=== PATIENT | female | born 1985 | race Caucasian/White ===

== ENCOUNTER 2018-05-04 19:43 | Inpatient (IN) | payer MEDICAID ==
[~2018-05-04] VITALS: Ht 157.5 cm; Wt 80.9 kg
[2018-05-04 19:34] VITALS: Ht 157.5 cm; Wt 80.9 kg
[2018-05-04 19:51] VITALS: BP 112/56; PULSE 74; RESP 18
[2018-05-04] MEDS ORDERED: FER325 PO (20:16)
[2018-05-04] MEDS ORDERED: METF500T24 PO (20:16)
[2018-05-04] MEDS ORDERED: INSU100C SQ (20:16)
[2018-05-04] MEDS ORDERED: PNV91TAB6 PO (20:16)
[2018-05-04] MEDS ORDERED: HYDROCODONE/APAP (5/325) TAB PO ONE (20:30)
[2018-05-05] MEDS: LACTATED RINGER'S 1,000 ML IV SCH ×3 (01:10→09:10)
--- NOTE | 2018-05-05 01:16 | HP ---
Date/Time of Note Date/Time of Note DATE: 05/05/18 TIME: 01:13 OB - History Hx of Present Chief Complaint: pelvic pain Estimated Due Date: Jul 29, 2018 : 1 Para: 0 Spontaneous : 0 Therapeutic : 0 Care: Other (records not available) Obstetrical Complications: Gestational Diabetes Medical Complications: None Past Family/Social History * Past Medical, Surgical, Family and Obstetric Histories reviewed from chart. OB Admission Exam Vital Signs Vital Signs Vital Signs Date Temp Pulse Resp B/P (MAP) Pulse Ox O2 O2 Flow FiO2 Time Delivery Rate 05/04/18 98.4 74 18 112/56 Room Air 19:51 (74) Physical Exam HEENT: WNL Heart: Rhythm Normal Lungs: Clear, Equal Abdomen: WNL Extremities: Normal Reflexes: Normal Heart Rate: 130's Accelerations: Accelerations Present Decelerations: No Decelerations Last 72 hourBlood Glucose Bedside Glucose - 72 Hours Test 05/04/18 20:29 Bedside Glucose 95 mg/dL (70-220) OB Assessment/Plan Reason for admission: other Other Assessment: SINCERE 7.7 Cervical length 2.8 Plan: Other Other plan: Admit IV hydration Repeat SINCERE and cervical length NIYAH MAN MD May 05, 2018 01:16
[2018-05-05] MEDS ORDERED: LACTATED RINGER'S 1,000 ML IV ONE (01:30)
[2018-05-05] MEDS ORDERED: ACETAMINOPHEN 325 MG TAB PO PRN (01:30)
[2018-05-05] MEDS ORDERED: AL HYDROX/MG HYDROX/SIMETH 30 ML CUP PO PRN (01:30)
[2018-05-05] MEDS ORDERED: ONDANSETRON 4 MG INJ IV PRN (01:30)
[2018-05-05] MEDS ORDERED: NOVO7030 SC (01:49)
--- NOTE | 2018-05-05 02:45 | TRIAGE ---
OB Triage Datetime Report Generated by CPN: 05/05/2018 02:45 Datetime: 05/05/2018 02:00 Labor Evaluation Frequency: none Monitor Mode: External Heart Rate FHR Baseline Rate: 140 Monitor Mode: External US Variability: Moderate 6-25 bpm Accelerations: 10X10 Comments: Some loss of contact. Datetime: 05/05/2018 01:05 Pain Assessment Comments: Patient is sleeping and appears comfortable. Datetime: 05/05/2018 01:00 Labor Evaluation Frequency: none Monitor Mode: External Heart Rate FHR Baseline Rate: 140 Monitor Mode: External US Variability: Moderate 6-25 bpm Accelerations: 10X10 Decelerations: Variable Comments: Some loss of contact. Appropriate for gestational age Datetime: 05/05/2018 00:00 Labor Evaluation Frequency: none Monitor Mode: External Heart Rate FHR Baseline Rate: 140 Monitor Mode: External US Variability: Moderate 6-25 bpm Accelerations: 10X10 Decelerations: Variable Comments: Appropriate for gestational age Datetime: 05/04/2018 23:06 Stage of : OB Triage Temperature Route: Oral Resting Tone [place]: Relaxed Pain Assessment Pain Scale: 3 Pain Presence: Intermittent Pain Type: Ache Pain Location: Back Pain Relief Measures: Comfort Measures Datetime: 05/04/2018 23:00 Labor Evaluation Frequency: none Monitor Mode: External Heart Rate FHR Baseline Rate: 140 Monitor Mode: External US Variability: Moderate 6-25 bpm Accelerations: 10X10 Comments: Difficulty in assessing due to frequent loss of contact Datetime: 05/04/2018 22:15 Resting Tone [place]: Relaxed Datetime: 05/04/2018 22:00 Labor Evaluation Frequency: none Monitor Mode: External Resting Tone [place]: Relaxed Heart Rate FHR Baseline Rate: 140 Monitor Mode: External US Variability: Moderate 6-25 bpm Comments: Difficulty in assessing heart rate because of frequent loss of contact Pain Assessment Pain Scale: 4 Pain Presence: Intermittent Pain Type: Ache Pain Location: Back Pain Relief Measures: Comfort Measures Datetime: 05/04/2018 21:03 Resting Tone [place]: Relaxed Datetime: 05/04/2018 21:00 Labor Evaluation Frequency: none Monitor Mode: External Heart Rate FHR Baseline Rate: 140 Monitor Mode: External US Variability: Moderate 6-25 bpm Accelerations: 15X15 Decelerations: None Pain Assessment Pain Scale: 6 Pain Presence: Intermittent Pain Type: Ache Pain Location: Back Pain Relief Measures: Comfort Measures Pain Assessment Comments: Patient states, "It's much better." Datetime: 05/04/2018 20:40 Resting Tone [place]: Relaxed Datetime: 05/04/2018 20:26 Pain Assessment Pain Scale: 8 Pain Presence: Intermittent Pain Type: Ache Pain Location: Back Pain Relief Measures: Comfort Measures Datetime: 05/04/2018 20:20 Labor Evaluation Frequency: x1 Monitor Mode: External Duration (sec)2399: 90 Heart Rate FHR Baseline Rate: 145 Monitor Mode: External US Variability: Moderate 6-25 bpm Accelerations: 15X15 Decelerations: None Comments: Appropriate for gestational age Datetime: 05/04/2018 20:09 Resting Tone [place]: Relaxed Datetime: 05/04/2018 19:51 Stage of : OB Triage Assessment Type: Triage Maternal Assessment Level of Consciousness: Fully Conscious DTR's/Clonus: DTRs 2+; No Clonus Headache: Denies Blurred Vision: No Respiratory Effort: Unlabored; Regular Rhythm; Equal Expansion Breath Sounds, Left: Clear and Equal Breath Sounds, Right: Clear and Equal Nausea/Vomiting: Denies RUQ Epigastric Pain: Denies Lower Extremities Edema: None Degree: None Upper Extremities Edema: None Degree: None Facial Edema: None Temperature Route: Oral Fall Risk Assessment History of Falling: (0) No Secondary Diagnosis: (0) No Ambulatory Aid: (0) Bedrest/Nurse Assist IV Therapy: (0) No Gait: (0) Normal/Bedrest/Immobile Mental Status: (0) Oriented to Own Ability Fall Score: 0 Fall Risk Score Definition: No Risk: No action required Comments: Patient states she feels active movement. Pain Assessment Pain Scale: 8 Pain Presence: Intermittent Pain Type: Ache Pain Location: Back Pain Relief Measures: Comfort Measures Datetime: 05/04/2018 19:50 Resting Tone [place]: Relaxed Datetime: 05/04/2018 19:49 Stage of : OB Triage Datetime: 05/04/2018 19:46 Monitor Mode: External (Annotations: applied) Resting Tone [place]: Relaxed Monitor Mode: External US (Annotations: applied) Datetime: 05/04/2018 19:34 Time of Arrival: 05/04/2018 19:34 EGA: 27.5 Arrived By: Wheelchair Arrived From: Home Chief Complaint: Back pain 09/18 Movement: Present Contractions: Denies/Absent Rupture of Membranes: Denies Vaginal Bleeding: None Vaginal Discharge: Denies Recent Sexual Intercouse: Denies Abdominal Trauma: Not Applicable Patient Complaints: Back Pain Time Provider Notified: 05/04/2018 20:20 Provider Notified: Dr. Hansen Initial Plan: EFM x2
[2018-05-05] MEDS ORDERED: PRENATAL VITAMIN PO SCH (09:00)
[2018-05-05] MEDS ORDERED: NPH, HUMAN INSULIN ISOPHANE 3ML VIAL SC SCH (21:00)
[2018-05-05] MEDS ORDERED: metFORMIN 500 MG TAB NGT SCH (21:00)
--- NOTE | 2018-05-05 22:43 | PN ---
Date/Time of Note Date/Time of Note DATE: 05/05/18 TIME: 22:38 OB Subjective Subjective Subjective Patient seen and examined. She states good movement. She denies nausea, vomiting, shortness of breath, chest pain, abdominal pain between contractions, headache, visual changes, vaginal bleeding or LOF. OB Objective Objective Objective General: Patient appears well, alert and oriented, NAD, appropriate mood and affect ABD: gravid, soft, non-tender. Back: No CVA tenderness (B/L) LE: Mild edema. No clubbing, cyanosis, edema, thigh or calf tenderness bilaterally FHT: 135 bpm , moderate variability with acceleration, no deceleration-category I Contractions:None OB Assessment/Plan Other plan: 32-year-old 1 with single intrauterine at 27 weeks and 6 days with a OLEKSANDR of 07/29/2018 and gestational diabetes A2 was admitted due to back pain and borderline amniotic fluid - FHR: Reassuring. No sign of metabolic acidosis- Category I - Contractions: None - SINCERE was 7.7, repeat ultrasound SINCERE is 9.9 - Cervical length is 3.3 - Currently patient has no symptom she discharged home in stable condition with follow-up with her primary OB. Recommend continue metformin and NPH and insulin and checking fasting blood glucose and 2 hours postprandial. Sign and symptom of labor, preeclampsia and kick count discussed in detail with patient. She expressed understanding. All of her questions answered. GAVI BECKER May 05, 2018 22:43
== END 2018-05-05 13:00 | disposition home or self-care (01) | DRG 833 ==
LOC: OBT 19:43 → L-D 19:44 → OBT 05-05 01:05 → L-D 05-05 12:03
PROVIDERS: ADMIT Obstetrics & Gynecology; ATTEND Obstetrics & Gynecology
DX: O47.02 False labor before 37 completed weeks of gestation, second trimester (principal); Z3A.27 27 weeks gestation of pregnancy; O24.419 Gestational diabetes mellitus in pregnancy, unspecified control
CPT/HCPCS: 36415; 76815; 76817; 81001; 81003; 82962; 85025; 85610; 85730; 86592; 86850; 86900; 86901; 87086; 87340; 96360; G0463; J1815; J7120

== ENCOUNTER 2018-07-06 18:33 | Outpatient (CLI) | payer MEDICAID ==
[~2018-07-06] VITALS: Ht 162.6 cm; Wt 86.4 kg
[~2018-07-06 18:33] MED LIST: FER325 PO; METF500T24 PO; NOVO7030 SC; PNV91TAB6 PO
[2018-07-06 18:48] VITALS: Ht 162.6 cm; Wt 86.4 kg
[2018-07-06 18:49] VITALS: BP 129/64
--- NOTE | 2018-07-06 22:10 | PN ---
Triage Information Date/Time Reason for visit: antepartum testing for GDM Weeks of Gestation 36 weeks /Para Diabetes: gestational Diabetes management: insulin controlled, oral agent Hypertention: none Objective Vital Signs Date Temp Pulse Resp B/P (MAP) Pulse Ox O2 O2 Flow FiO2 Time Delivery Rate 07/06/18 98.1 129/64 18:49 (85) Heart Rate: 120's Heart Rate Comments Reactive Results/Medications Result Diagram: 07/06/18210307/06/182103 Results 24 hrs Laboratory Tests Test 07/06/18 20:44 07/06/18 21:04 Urine Color YELLOW Urine Clarity CLEAR Urine pH 6.0 Urine Specific [place] 1.014 Urine Ketones NEGATIVE Urine Nitrite NEGATIVE Urine Bilirubin NEGATIVE Urine Urobilinogen NEGATIVE Urine Leukocyte Esterase NEGATIVE Urine Microscopic RBC 3 Urine Microscopic WBC 2 Urine Squamous Epithelial Cells FEW Urine Mucus FEW A Urine Hemoglobin 1+ H Urine Glucose NEGATIVE Urine Total Protein NEGATIVE White Blood Count 16.9 H Red Blood Count 4.50 Hemoglobin 12.3 Hematocrit 37.2 Mean Corpuscular Volume 82.7 Mean Corpuscular Hemoglobin 27.3 L Mean Corpuscular Hemoglobin Concent 33.1 Red Cell Distribution Width 16.6 H Platelet Count 212 Mean Platelet Volume 11.9 H Immature Granulocytes % 1.200 H Neutrophils % 72.4 Lymphocytes % 18.1 Monocytes % 7.2 Eosinophils % 0.9 Basophils % 0.2 Nucleated Red Blood Cells % 0.0 Immature Granulocytes # 0.200 H Neutrophils # 12.2 H Lymphocytes # 3.1 H Monocytes # 1.2 H Eosinophils # 0.2 Basophils # 0.0 Nucleated Red Blood Cells # 0.0 Sodium Level 136 Potassium Level 4.0 Chloride Level 108 Carbon Dioxide Level 20 L Anion Gap 8 Blood Urea Nitrogen 13 Creatinine 0.45 Est Glomerular Filtrat Rate mL/min > 60 Glucose Level 79 Uric Acid 5.9 Calcium Level 9.4 Total Bilirubin 0.3 Direct Bilirubin 0.00 Indirect Bilirubin 0.3 Aspartate Amino Transf (AST/SGOT) 15 Alanine Aminotransferase (ALT/SGPT) 23 Alkaline Phosphatase 135 H Total Protein 7.0 Albumin 3.6 Globulin 3.40 H Albumin/Globulin Ratio 1.05 Imaging Results BPP 8/8 SINCERE 7.5 Disposition: Discharge Assessment/Plan Follow up antepartum testing on 07/07/2018. NIYAH MAN MD July 06, 2018 22:10
--- NOTE | 2018-07-06 22:50 | TRIAGE ---
OB Triage Datetime Report Generated by CPN: 07/06/2018 22:49 Datetime: 07/06/2018 22:04 Monitor Mode: External (Annotations: removed) Monitor Mode: External US (Annotations: removed) Datetime: 07/06/2018 22:00 Labor Evaluation Frequency: x3 Monitor Mode: External Duration (sec)2399: 60-100 Pattern: Normal: <= 5 Contractions in 10 Minutes Heart Rate FHR Baseline Rate: 130 Monitor Mode: External US Variability: Moderate 6-25 bpm Accelerations: 15X15 Decelerations: None Category: Category I Comments: Some loss of contact Datetime: 07/06/2018 21:59 Resting Tone [place]: Relaxed Datetime: 07/06/2018 21:00 Labor Evaluation Frequency: x2 Monitor Mode: External Duration (sec)2399: 60-80 Heart Rate FHR Baseline Rate: 130 Monitor Mode: External US Variability: Moderate 6-25 bpm Accelerations: 15X15 Decelerations: None Category: Category I Comments: Some loss of contact Datetime: 07/06/2018 20:47 Resting Tone [place]: Relaxed Pain Assessment Pain Scale: 0 Pain Presence: None/Denies Pain Type: N/A Datetime: 07/06/2018 20:00 Labor Evaluation Frequency: x1 Monitor Mode: External Duration (sec)2399: 60 Pattern: Normal: <= 5 Contractions in 10 Minutes Heart Rate FHR Baseline Rate: 125 Monitor Mode: External US Variability: Moderate 6-25 bpm Accelerations: 15X15 Decelerations: None Category: Category I Comments: Frequent loss of contact Datetime: 07/06/2018 19:34 Resting Tone [place]: Relaxed Datetime: 07/06/2018 19:28 Stage of : OB Triage Assessment Type: Triage Maternal Assessment Level of Consciousness: Fully Conscious DTR's/Clonus: DTRs 2+; No Clonus Headache: Denies Blurred Vision: No Respiratory Effort: Unlabored; Regular Rhythm; Equal Expansion Breath Sounds, Left: Clear and Equal Breath Sounds, Right: Clear and Equal Nausea/Vomiting: Denies RUQ Epigastric Pain: Denies Lower Extremities Edema: None Degree: None Upper Extremities Edema: None Degree: None Facial Edema: None Temperature Route: Oral Fall Risk Assessment History of Falling: (0) No Secondary Diagnosis: (0) No Ambulatory Aid: (0) Bedrest/Nurse Assist IV Therapy: (0) No Gait: (0) Normal/Bedrest/Immobile Mental Status: (0) Oriented to Own Ability Fall Score: 0 Fall Risk Score Definition: No Risk: No action required Datetime: 07/06/2018 19:27 Resting Tone [place]: Relaxed Datetime: 07/06/2018 19:20 Resting Tone [place]: Relaxed Comments: Patient states she feels active movement Datetime: 07/06/2018 18:46 Stage of : OB Triage Assessment Type: Triage Maternal Assessment Level of Consciousness: Fully Conscious DTR's/Clonus: DTRs 2+; No Clonus Headache: Denies Blurred Vision: No Respiratory Effort: Unlabored; Regular Rhythm; Equal Expansion Breath Sounds, Left: Clear and Equal Breath Sounds, Right: Clear and Equal Nausea/Vomiting: Denies RUQ Epigastric Pain: Denies Lower Extremities Edema: None Degree: None Upper Extremities Edema: None Degree: None Facial Edema: None Temperature Route: Oral Fall Risk Assessment History of Falling: (0) No Secondary Diagnosis: (0) No Ambulatory Aid: (0) Bedrest/Nurse Assist IV Therapy: (0) No Gait: (0) Normal/Bedrest/Immobile Mental Status: (0) Oriented to Own Ability Fall Score: 0 Fall Risk Score Definition: No Risk: No action required Monitor Mode: External Pain Assessment Pain Scale: 0 Pain Presence: None/Denies Datetime: 07/06/2018 18:23 Time of Arrival: 07/06/2018 18:23 EGA: 36.5 Arrived By: Ambulatory Arrived From: Dr. Moon Chief Complaint: Sent from clinic with orders for NST and BPP Movement: Present Contractions: Denies/Absent Rupture of Membranes: Denies Vaginal Bleeding: None Vaginal Discharge: Denies Recent Sexual Intercouse: Denies Abdominal Trauma: Not Applicable Patient Complaints: None Time Provider Notified: 07/06/2018 20:05 Provider Notified: Dr. Michael Initial Plan: EFM x2, BPP Datetime: 05/05/2018 11:31 Stage of : Antepartum Time of Arrival: 07/06/2018 18:23 EGA: 36.5 Arrived By: Ambulatory Arrived From: Home Chief Complaint: SENT FOR F/UP NST BPP FOR GMD Movement: Present Contractions: Occasional Rupture of Membranes: Denies Vaginal Bleeding: None Vaginal Discharge: Denies Recent Sexual Intercouse: Denies Abdominal Trauma: Not Applicable Patient Complaints: Contractions Time Provider Notified: 07/06/2018 20:05 Initial Plan: NST BPP Datetime: 05/05/2018 11:00 Stage of : Antepartum Labor Evaluation Frequency: 0 Monitor Mode: External Resting Tone [place]: Relaxed Heart Rate FHR Baseline Rate: 135 Monitor Mode: External US Variability: Moderate 6-25 bpm Accelerations: 10X10 Decelerations: None Category: Category I Pain Assessment Pain Scale: 0 Pain Presence: None/Denies Pain Type: N/A Datetime: 05/05/2018 10:40 Stage of : Antepartum Labor Evaluation Frequency: 0 Monitor Mode: External Resting Tone [place]: Relaxed Heart Rate FHR Baseline Rate: 140 Monitor Mode: External US FHR Baseline Changes: No Baseline Change Variability: Moderate 6-25 bpm Accelerations: 10X10 Decelerations: None Category: Category I Pain Assessment Pain Scale: 0 Pain Presence: None/Denies Pain Type: N/A Datetime: 05/05/2018 09:00 Stage of : Antepartum Labor Evaluation Frequency: 0 Monitor Mode: External Resting Tone [place]: Relaxed Heart Rate FHR Baseline Rate: 140 Monitor Mode: External US Variability: Moderate 6-25 bpm Accelerations: 10X10 Decelerations: None Category: Category I Pain Assessment Pain Scale: 0 Pain Presence: None/Denies Pain Type: N/A Datetime: 05/05/2018 07:57 Assessment Type: Ongoing Assessment Maternal Assessment Level of Consciousness: Fully Conscious DTR's/Clonus: DTRs 2+; No Clonus Headache: Denies Blurred Vision: No Respiratory Effort: Unlabored; Regular Rhythm; Equal Expansion Breath Sounds, Left: Clear and Equal Breath Sounds, Right: Clear and Equal Nausea/Vomiting: Denies RUQ Epigastric Pain: Denies Lower Extremities Edema: None Degree: None Upper Extremities Edema: None Degree: None Facial Edema: None Fall Risk Assessment History of Falling: (0) No Secondary Diagnosis: (0) No Ambulatory Aid: (0) Bedrest/Nurse Assist IV Therapy: (20) Yes Gait: (0) Normal/Bedrest/Immobile Mental Status: (0) Oriented to Own Ability Fall Score: 20 Fall Risk Score Definition: No Risk: No action required Datetime: 05/05/2018 07:20 Stage of : Antepartum Datetime: 05/05/2018 07:00 Labor Evaluation Frequency: x1 Monitor Mode: External Duration (sec)2399: 40 Quality: Mild Resting Tone [place]: Relaxed Contraction Comments: pt without complaint of uc pain. Heart Rate FHR Baseline Rate: 140 Monitor Mode: External US FHR Baseline Changes: No Baseline Change Variability: Moderate 6-25 bpm Decelerations: None Datetime: 05/05/2018 06:00 Labor Evaluation Frequency: none Monitor Mode: External Resting Tone [place]: Relaxed Heart Rate FHR Baseline Rate: 140 Monitor Mode: External US FHR Baseline Changes: No Baseline Change Variability: Moderate 6-25 bpm Accelerations: 10X10 Decelerations: None Datetime: 05/05/2018 05:00 Labor Evaluation Frequency: x1 Monitor Mode: External Duration (sec)2399: 40 Quality: Mild Resting Tone [place]: Relaxed Contraction Comments: pt without complaint of uc pain. Heart Rate FHR Baseline Rate: 140 Monitor Mode: External US FHR Baseline Changes: No Baseline Change Variability: Moderate 6-25 bpm Accelerations: 15X15 Decelerations: None Datetime: 05/05/2018 04:00 Labor Evaluation Frequency: none Monitor Mode: External Resting Tone [place]: Relaxed Heart Rate FHR Baseline Rate: 140 Monitor Mode: External US FHR Baseline Changes: No Baseline Change Variability: Moderate 6-25 bpm Accelerations: 15X15 Decelerations: None Pain Assessment Pain Scale: 0 Pain Presence: None/Denies Datetime: 05/05/2018 03:36 Stage of : Antepartum Temperature Route: Oral Pain Assessment Pain Scale: 0 Pain Presence: None/Denies Pain Goal: 0 Datetime: 05/05/2018 03:00 Assessment Type: Admission Assessment Vaginal Bleeding: None Maternal Assessment Level of Consciousness: Fully Conscious DTR's/Clonus: DTRs 2+; No Clonus Headache: Denies Blurred Vision: No Respiratory Effort: Unlabored; Regular Rhythm; Equal Expansion Breath Sounds, Left: Clear and Equal Breath Sounds, Right: Clear and Equal Nausea/Vomiting: Denies RUQ Epigastric Pain: Denies Lower Extremities Edema: None Degree: None Upper Extremities Edema: None Degree: None Facial Edema: None Fall Risk Assessment History of Falling: (0) No Secondary Diagnosis: (0) No Ambulatory Aid: (0) Bedrest/Nurse Assist IV Therapy: (20) Yes Gait: (0) Normal/Bedrest/Immobile Mental Status: (0) Oriented to Own Ability Fall Score: 20 Fall Risk Score Definition: No Risk: No action required Labor Evaluation Frequency: none Monitor Mode: External Resting Tone [place]: Relaxed Heart Rate FHR Baseline Rate: 135 Monitor Mode: External US FHR Baseline Changes: No Baseline Change Variability: Moderate 6-25 bpm Accelerations: 10X10 Decelerations: None Pain Assessment Pain Scale: 0 Pain Presence: None/Denies Vaginal Exam Membrane Status: Intact Datetime: 05/04/2018 19:51 Fall Score: 0 Fall Risk Score Definition: No Risk: No action required Datetime: 05/04/2018 19:34 EGA: 27.5
[2018-07-07] MEDS ORDERED: NPH,100I5 SQ (15:11)
== END 2018-07-06 22:16 | disposition home or self-care (01) ==
LOC: L-D 18:33 → OBT 18:33
PROVIDERS: ATTEND Obstetrics & Gynecology
DX: O24.414 Gestational diabetes mellitus in pregnancy, insulin controlled (principal); Z3A.36 36 weeks gestation of pregnancy
CPT/HCPCS: 76818; 80053; 81001; 84560; 85025; G0463

== ENCOUNTER 2018-07-07 13:12 | Inpatient (IN) | payer MEDICAID ==
[~2018-07-07] VITALS: Ht 157.5 cm; Wt 87.2 kg
--- NOTE | 2018-07-07 15:09 | TRIAGE ---
OB Triage Datetime Report Generated by CPN: 07/07/2018 15:09 Datetime: 07/07/2018 13:24 Assessment Type: Triage Level of Consciousness: Fully Conscious DTR's/Clonus: DTRs 2+; No Clonus Headache: Denies Blurred Vision: No Respiratory Effort: Unlabored; Regular Rhythm; Equal Expansion Breath Sounds, Left: Clear and Equal Breath Sounds, Right: Clear and Equal Nausea/Vomiting: Denies RUQ Epigastric Pain: Denies Lower Extremities Edema: None Degree: None Upper Extremities Edema: None Degree: None Facial Edema: None History of Falling: (0) No Secondary Diagnosis: (0) No Ambulatory Aid: (0) Bedrest/Nurse Assist IV Therapy: (0) No Gait: (0) Normal/Bedrest/Immobile Mental Status: (0) Oriented to Own Ability Fall Score: 0 Fall Risk Score Definition: No Risk: No action required Datetime: 07/07/2018 13:23 Time of Arrival: 07/07/2018 13:05 EGA: 36.6 Arrived By: Ambulatory Arrived From: Home Chief Complaint: pt. here for NST/BPP FOR GDM AND F/U LOW SINCERE Movement: Present Contractions: Denies/Absent Rupture of Membranes: Denies Vaginal Bleeding: None Vaginal Discharge: Denies Recent Sexual Intercouse: Denies Abdominal Trauma: Not Applicable Patient Complaints: None Time Provider Notified: 07/07/2018 13:35 Provider Notified: HADADIAN Initial Plan: NST/SINCERE Datetime: 07/07/2018 13:17 Monitor Mode: External Monitor Mode: External US
[2018-07-07] MEDS ORDERED: NPH,100I5 SQ (15:11)
[2018-07-07] MEDS ORDERED: ACETAMINOPHEN 325 MG TAB PO PRN (15:30)
[2018-07-07] MEDS: LACTATED RINGER'S 1,000 ML IV SCH ×2 (17:31→22:18)
--- NOTE | 2018-07-07 20:38 | HP ---
Date/Time of Note Date/Time of Note DATE: 07/07/18 TIME: 20:31 OB - History Hx of Present Free Text/Dictation 32-year-old G1 with A2 gestational diabetes and single intrauterine at 36 weeks and 6 days with a OLEKSANDR of 07/29/2018 presented to triage for NST and the amniotic fluid index. She was seen in triage yesterday, SINCERE was 7.5, commend come back for repeat the SINCERE. She states good movement. She denies nausea, vomiting, shortness of breath, chest pain, headache, visual changes, vaginal bleeding or LOF. Chief Complaint: Follow-up ultrasound : 1 Care: Good Care Ultrasounds: Normal mid trimester US Obstetrical Complications: Gestational Diabetes Medical Complications: None Past Family/Social History * Past medical history: She was diagnosed with diabetes in current . Past Surgical, Family and Obstetric Histories reviewed which are unremarkable Blood Type: O+ Rubella: immune RPR/VDRL: Negative HBsAG: Negative OB Admission Exam Vital Signs Vital Signs Blood pressure 120/67, pulse rate 70/minutes respiratory rate 16/minutes temperature 98.5 Physical Exam HEENT: WNL Heart: Rhythm Normal Lungs: Clear Abdomen: WNL Extremities: Normal Membranes: Intact Heart Rate: 130's Accelerations: Accelerations Present Decelerations: No Decelerations Varibility: Moderate Contractions on Admission: None OB Assessment/Plan Other plan: 32 years old 1 with A2 GDM and oligohydramnios at 36 weeks and 6 days -FHR: No sign of metabolic acidosis- Category I -Continuous EFM, toco -CBC, blood type and screen -Ultrasound performed, SINCERE of 5.1 -IV hydration and repeat ultrasound tomorrow -Please see the orders -Obtain records -O+/Rubella: Immune 2. A2 GDM: -FBS and 2-hour postprandial -Consistent carbohydrate diet -She is currently on metformin 500 mg and NPH 6 U every night. GAVI BECKER July 07, 2018 20:38
[2018-07-07] MEDS: ACCU-CHEK XX SCH (20:56)
[2018-07-07] MEDS ORDERED: NPH, HUMAN INSULIN ISOPHANE 3ML VIAL SC SCH (21:00)
[2018-07-07] MEDS ORDERED: metFORMIN 500 MG TAB PO SCH (21:00)
[2018-07-08] MEDS: LACTATED RINGER'S 1,000 ML IV SCH (06:00)
[2018-07-08] MEDS: ACCU-CHEK XX SCH ×2 (08:00→10:30)
[2018-07-08 08:29] VITALS: Ht 157.5 cm; Wt 87.2 kg
--- NOTE | 2018-07-08 17:00 | QN ---
Documentation Comment She denies any complaint. Denies any leaking of fluid, vaginal bleeding d ecreased movement or uterine contractions. Denies any headache, blurred vision, epigastric pain or right upper quadrant pa in. Physical examination: General appearance: Alert and oriented x4 does not appear to be in any acute distress Abdomen: Soft, gravid, fundal height consider gestational age NST: Category 1 BPP: 8 Repeat SINCERE: Improved to 8.4 Blood pressure is between 120s to 140s over 80s. Mostly less than 140 0 over 80s. PIH labs are normal. Urine negative for protein Assessment IUP at 37 weeks Mild hypertension, well controlled with rest, asymptomatic Borderline oligohydramnios. Resolved after hydration Patient is currently asymptomatic Patient can be discharged home with a strict labor precautions and kick counts as well as preeclampsia precaution and to return to triage tomorrow again for SINCERE check as well as re-monitoring of her blood pressure Advised the patient to have rest at home Signs and symptoms of preeclampsia as well discussed with the patient If any evidence of oligohydramnios or elevated blood pressure noted plan to deliver the patient Plan of care discussed with the patient in detail. It was discussed in [place] language. All questions were answered to patient with satisfaction and patient agreed to comply with instructions. SAQIB SEAY MD July 08, 2018 17:00
--- NOTE | 2018-07-08 17:02 | DS ---
Date/Time of Note Date/Time of Note DATE: 07/08/18 TIME: 17:01 Discharge Summary Admission/Discharge Info Admit Date/Time July 07, 2018 at 14:52 Discharge Date/Time July 08, 2018 at 14:26 Patient Condition: Good Consults None Procedures Observation and monitoring, hydration and repeat testing and SINCERE Monitoring closely blood pressures Hx of Present Illness 32-year-old G1 with A2 gestational diabetes and single intrauterine at 36 weeks and 6 days with a OLEKSANDR of 07/29/2018 presented to triage for NST and the amniotic fluid index. Patient was noted to have borderline low amniotic fluid index. SINCERE was 5. She had mildly borderline elevated blood pressure that improved significantly with rest. Blood pressures were all below 140s over 80s. A couple of values in 140s over 80s. She was asymptomatic. After hydration next day repeat SINCERE showed SINCERE above 8. Patient was asymptomatic. Patient was discharged home in stable condition with a strict labor precautions kick count and to return to triage tomorrow again for repeat SINCERE. She also will have repeat serial blood pressure monitoring. If any evidence of increasing blood pressure, low amniotic fluid or consider delivery. Otherwise plan to delivery between 37 to 38 weeks considering labs normal and patient asymptomatic with adequate growth and adequate amniotic fluid Plan of care discussed with the patient. Patient verbalized understanding. All questions were answered to patient's satisfaction. Patient was advised to rest at home. Hospital Course None complicated Home Meds Reported Medications NPH, Human Insulin Isophane (Humulin N Kwikpen) 100 Unit/1 Ml Insuln.pen, 6 UNIT SQ QHS, EA 07/07/18 Metformin Hcl* (Metformin Hcl*) 500 Mg Tablet, 500 MG PO QHS, #30 TAB 05/04/18 Ferrous Sulfate* (Ferrous Sulfate*) 325 Mg Tabec, 325 MG PO DAILY, TAB 05/04/18 Pnv95/Ferrous Fumarate/FA ( Vitamin Tablet) 1 Each Tablet, 1 EACH PO, TAB 05/04/18 Discontinued Reported Medications Insulin Isophan/Regular (Humulin 70/30) 100 Units/Ml Susp, 6 UNIT SC HS, EA 05/05/18 Follow-up Plan Tomorrow with triage for repeat SINCERE after adequate hydration tonight with a strict preeclampsia precaution, labor precautions kick count Primary Care Provider Care Physician No Primary Time spent on discharge: > 30 minutes Pending Labs Laboratory Tests Test 5/29/19 20:26 07/08/18 06:51 07/08/18 08:01 07/08/18 10:28 Bedside 112 73 79 Glucose mg/dL (70-220) mg/dL (70-220) mg/dL (70-220) Lab Scanned REFERENCE Report LAB [id number] SAQIB SEAY MD July 08, 2018 17:02
--- NOTE | 2018-07-08 17:06 | PD.PPDC ---
[facility] Discharge Instruction Condition [id number] Patient Condition: [id number] Good Diet [id number] Diet: Cdoje3x Special Diet (low sodium diet) Activity/Restrictions [id number] Restrictions: Sepst6u No Exercising No Lifting No Driving Minimize Walking Minimize Stair-climbing Follow-up Follow-up with Physician: 1, Day/Days Provider Information: Saqib Seay MD Return to clinic for [id number] OB Instructions: [id number] Depression Blurried Vision Headache Comment: Uterine contraction, decreased movement, vaginal bleeding, headache, blurred vision, epigastric pain or right upper quadrant pain or any other concern. SAQIB SEAY MD July 08, 2018 17:06
== END 2018-07-08 14:26 | disposition home or self-care (01) | DRG 832 ==
LOC: OBT 13:12 → L-D 13:14 → OBT 14:50 → L-D 14:52 → PP1 18:45
PROVIDERS: ADMIT Obstetrics & Gynecology; ATTEND Obstetrics & Gynecology
DX: O24.414 Gestational diabetes mellitus in pregnancy, insulin controlled (principal); O41.03X0 Oligohydramnios, third trimester, not applicable or unspecified; O16.3 Unspecified maternal hypertension, third trimester; Z3A.36 36 weeks gestation of pregnancy
CPT/HCPCS: 76816; 76818; 80053; 81001; 82962; 84560; 85025; G0463; J1815; J7120

== ENCOUNTER 2018-07-09 16:48 | Outpatient (CLI) | payer MEDICAID ==
[~2018-07-09] VITALS: Ht 157.5 cm; Wt 87.5 kg
[~2018-07-09 16:48] MED LIST changes: +NPH,100I5 SQ
[2018-07-09 17:47] VITALS: Ht 157.5 cm; Wt 87.5 kg
[2018-07-09 17:48] VITALS: BP 131/68; PULSE 73; RESP 18
--- NOTE | 2018-07-09 21:02 | PN ---
Triage Information Date/Time Reason for visit: Follow-up in oligohydramnios Weeks of Gestation Patient is a 32-year-old 1 para 0 at 37 weeks and 1 day gestation with estimated date of delivery July 29, 2018 She is here for follow-up on oligohydramnios for NST and BPP Patient is gestational diabetic on metformin and insulin She reports positive movement, denies uterine contractions, denies vaginal bleeding or leaking fluid /Para 1 para 0 Diabetes: gestational (GDM A2) Diabetes management: insulin controlled (Metformin and insulin) Hypertention: none Objective Vital Signs Date Temp Pulse Resp B/P (MAP) Pulse Ox O2 O2 Flow FiO2 Time Delivery Rate 07/09/18 98.4 73 18 131/68 17:48 (89) Heart Rate: 140's Heart Rate Comments heart rate tracing category 1 Contractions: None Results/Medications Imaging Results PROCEDURE: US OB. CLINICAL INDICATION: Oligohydramnios TECHNIQUE: Multiple sonographic images of the pelvis were obtained. The images were reviewed on a PACS workstation. COMPARISON: 07/08/2018 FINDINGS: There is a single live intrauterine . cardiac activity is identified at a rate of 133 beats per minute. presentation is cephalic. Placenta is anterior grade II. There is no evidence of placenta previa or abruption. Biophysical profile score is as follows: Breathing 2 Movements 2 Tone 2 Fluid volume 2 Amniotic fluid index = 8.2 cm Total biophysical profile score = 8/8 IMPRESSION: Biophysical profile score = 8/8 RPTAT: HH .Masoud Carrasco MD, MD Date Time Electronically viewed and signed by .Masoud Carrasco MD, on 07/09/2018 18:20 .W/ CC: GAVI BECKER [id number] Disposition: Discharge Assessment/Plan Patient instructed to return in 48 hours for repeat NST and BPP kick count instructions were given Labor precautions were given Patient instructed to follow-up with her own [facility] TENDER in 1 to 2 days VERONICA AMEZQUITA MD July 09, 2018 21:02
== END 2018-07-09 19:53 | disposition home or self-care (01) ==
LOC: L-D 16:48 → OBT 16:48
PROVIDERS: ATTEND Obstetrics & Gynecology
DX: O41.03X0 Oligohydramnios, third trimester, not applicable or unspecified (principal); O24.414 Gestational diabetes mellitus in pregnancy, insulin controlled; Z3A.37 37 weeks gestation of pregnancy
CPT/HCPCS: 76818; Z7500; G0463

== ENCOUNTER 2018-07-12 16:07 | Outpatient (CLI) | payer MEDICAID ==
[~2018-07-12] VITALS: Ht 157.5 cm; Wt 86.8 kg
[~2018-07-12 16:07] MED LIST changes: -NOVO7030 SC
[2018-07-12 16:27] VITALS: Ht 157.5 cm; Wt 86.8 kg
[2018-07-12 16:28] VITALS: BP 134/63; PULSE 60; RESP 19
--- NOTE | 2018-07-12 17:32 | TRIAGE ---
OB Triage Datetime Report Generated by CPN: 07/12/2018 17:31 Datetime: 07/12/2018 16:32 Assessment Type: Triage Maternal Assessment Level of Consciousness: Fully Conscious DTR's/Clonus: DTRs 2+; No Clonus Headache: Denies Blurred Vision: No Respiratory Effort: Unlabored; Regular Rhythm; Equal Expansion Breath Sounds, Left: Clear and Equal Breath Sounds, Right: Clear and Equal Nausea/Vomiting: Denies RUQ Epigastric Pain: Denies Lower Extremities Edema: None Degree: None Upper Extremities Edema: None Degree: None Facial Edema: None Fall Risk Assessment History of Falling: (0) No Secondary Diagnosis: (0) No Ambulatory Aid: (0) Bedrest/Nurse Assist IV Therapy: (0) No Gait: (0) Normal/Bedrest/Immobile Mental Status: (0) Oriented to Own Ability Fall Score: 0 Fall Risk Score Definition: No Risk: No action required Datetime: 07/12/2018 16:31 Time of Arrival: 07/12/2018 16:20 EGA: 37.4 Arrived By: Ambulatory Arrived From: Home Chief Complaint: LOW SINCERE Movement: Present Contractions: Denies/Absent Rupture of Membranes: Denies Vaginal Bleeding: None Vaginal Discharge: Denies Recent Sexual Intercouse: Denies Abdominal Trauma: Not Applicable Patient Complaints: Other Time Provider Notified: 07/12/2018 17:15 Provider Notified: dr self Initial Plan: NST BPP Datetime: 07/12/2018 16:30 Labor Evaluation Frequency: 0 Monitor Mode: External Pattern: Normal: <= 5 Contractions in 10 Minutes [address] Tone [place]: Relaxed Heart Rate FHR Baseline Rate: 135 Monitor Mode: External US Variability: Moderate 6-25 bpm Accelerations: 15X15 Decelerations: None Category: Category I Datetime: 07/09/2018 19:40 Stage of : OB Triage Datetime: 07/09/2018 19:12 Stage of : OB Triage Monitor Mode: External Quality: Mild Pattern: Normal: <= 5 Contractions in 10 Minutes Resting Tone [place]: Relaxed Heart Rate FHR Baseline Rate: 140 Monitor Mode: External US FHR Baseline Changes: No Baseline Change Variability: Moderate 6-25 bpm Accelerations: 15X15 Decelerations: None Category: Category I Datetime: 07/09/2018 18:40 Labor Evaluation Frequency: 0 Monitor Mode: External Pattern: Normal: <= 5 Contractions in 10 Minutes [address]ing Tone [place]: Relaxed Heart Rate FHR Baseline Rate: 135 Monitor Mode: External US Variability: Moderate 6-25 bpm Accelerations: 10X10 Decelerations: None Category: Category I Pain Assessment Pain Scale: 0 Pain Presence: None/Denies Pain Type: N/A Pain Goal: 3 Pain Relief Measures: Comfort Measures Datetime: 07/09/2018 17:29 Stage of : OB Triage Assessment Type: Triage Maternal Assessment Level of Consciousness: Fully Conscious DTR's/Clonus: DTRs 2+; No Clonus Headache: Denies Blurred Vision: No Respiratory Effort: Unlabored; Regular Rhythm; Equal Expansion Breath Sounds, Left: Clear and Equal Breath Sounds, Right: Clear and Equal Nausea/Vomiting: Denies RUQ Epigastric Pain: Denies Facial Edema: None Temperature Route: Axillary Fall Risk Assessment History of Falling: (0) No Secondary Diagnosis: (0) No Ambulatory Aid: (0) Bedrest/Nurse Assist IV Therapy: (0) No Gait: (0) Normal/Bedrest/Immobile Mental Status: (0) Oriented to Own Ability Fall Score: 0 Fall Risk Score Definition: No Risk: No action required Labor Evaluation Frequency: 0 Monitor Mode: External Pattern: Normal: <= 5 Contractions in 10 Minutes [address] Tone [place]: Relaxed Heart Rate FHR Baseline Rate: 135 Monitor Mode: External US Variability: Moderate 6-25 bpm Accelerations: None Decelerations: None Pain Assessment Pain Scale: 0 Pain Presence: None/Denies Pain Type: N/A Pain Goal: 3 Pain Relief Measures: Comfort Measures Datetime: 07/09/2018 17:28 Time of Arrival: 07/02/2018 16:43 EGA: 36.1 Arrived By: Ambulatory Arrived From: Home Chief Complaint: FOLLOW UP LOW SINCERE, DENIES BLEEDING, LEAKING, OR UC'S, DENIES H/A, BLURRY VISION OR EPIGASTRIC PAIN Movement: Present Contractions: Denies/Absent Rupture of Membranes: Denies Vaginal Discharge: Denies Recent Sexual Intercouse: Denies Abdominal Trauma: Not Applicable Initial Plan: MONITOR, BPP Datetime: 07/08/2018 14:33 Time of Arrival: 07/02/2018 16:43 EGA: 36.1 Arrived By: Ambulatory Arrived From: Home Datetime: 07/08/2018 14:17 Monitor Mode: External Resting Tone [place]: Relaxed Contraction Comments: none noted Heart Rate FHR Baseline Rate: 130 Monitor Mode: External US Variability: Moderate 6-25 bpm Accelerations: 15X15 Decelerations: None Category: Category I Comments: Periods of loss of contact Pain Presence: None/Denies Pain Type: N/A Datetime: 07/08/2018 13:34 Monitor Mode: External Datetime: 07/08/2018 13:31 Monitor Mode: External US Datetime: 07/08/2018 13:00 Monitor Mode: External Resting Tone [place]: Relaxed Contraction Comments: none noted Heart Rate FHR Baseline Rate: 130 Monitor Mode: External US Variability: Moderate 6-25 bpm Accelerations: 15X15 Decelerations: None Category: Category I Comments: periods of loss of contact Pain Presence: None/Denies Pain Type: N/A Datetime: 07/08/2018 12:00 Stage of : Antepartum Maternal Assessment Level of Consciousness: Fully Conscious Headache: Denies Breath Sounds, Left: Clear and Equal Breath Sounds, Right: Clear and Equal Nausea/Vomiting: Denies RUQ Epigastric Pain: Denies Monitor Mode: External Resting Tone [place]: Relaxed Contraction Comments: none noted Heart Rate FHR Baseline Rate: 135 Monitor Mode: External US Variability: Moderate 6-25 bpm Accelerations: 15X15 Decelerations: None Category: Category I Comments: periods of loss of contact due to position change Pain Presence: None/Denies Pain Type: N/A Datetime: 07/08/2018 11:00 Stage of : Antepartum Monitor Mode: External Resting Tone [place]: Relaxed Contraction Comments: none noted Heart Rate FHR Baseline Rate: 135 Monitor Mode: External US Variability: Moderate 6-25 bpm Accelerations: 15X15 Decelerations: None Category: Category I Comments: periods of loss of contact Pain Assessment Pain Scale: 0 Pain Presence: None/Denies Pain Type: N/A Datetime: 07/08/2018 10:00 Stage of : Antepartum Monitor Mode: External Resting Tone [place]: Relaxed Contraction Comments: none noted or felt Heart Rate FHR Baseline Rate: 130 Monitor Mode: External US Variability: Moderate 6-25 bpm Accelerations: 15X15 Decelerations: None Category: Category I Pain Presence: None/Denies Pain Type: N/A Datetime: 07/08/2018 09:00 Stage of : Antepartum Labor Evaluation Frequency: none noted Monitor Mode: External Quality: Mild Pattern: Normal: <= 5 Contractions in 10 Minutes [address] [place]: Relaxed Heart Rate FHR Baseline Rate: 140 Monitor Mode: External US Variability: Moderate 6-25 bpm Accelerations: 15X15 Decelerations: None Category: Category I Pain Presence: None/Denies Pain Type: N/A Datetime: 07/08/2018 08:02 Assessment Type: Ongoing Assessment Maternal Assessment Level of Consciousness: Fully Conscious Headache: Denies Blurred Vision: No Respiratory Effort: Unlabored; Regular Rhythm; Equal Expansion Breath Sounds, Left: Clear and Equal Breath Sounds, Right: Clear and Equal Nausea/Vomiting: Denies RUQ Epigastric Pain: Denies Lower Extremities Edema: Bilateral Lower Extremities Degree: 1+ Degree: None Facial Edema: None Fall Risk Assessment History of Falling: (0) No Secondary Diagnosis: (0) No Ambulatory Aid: (0) Bedrest/Nurse Assist IV Therapy: (20) Yes Gait: (0) Normal/Bedrest/Immobile Mental Status: (0) Oriented to Own Ability Fall Score: 20 Fall Risk Score Definition: No Risk: No action required Datetime: 07/08/2018 08:00 Labor Evaluation Frequency: NONE NOTED/FELT Pattern: Normal: <= 5 Contractions in 10 Minutes [address] [place]: Relaxed Heart Rate FHR Baseline Rate: 130 Monitor Mode: External US Variability: Moderate 6-25 bpm Accelerations: 15X15 Decelerations: None Category: Category I Pain Presence: None/Denies Pain Type: N/A Datetime: 07/08/2018 06:00 Labor Evaluation Frequency: 0 Monitor Mode: External Resting Tone [place]: Relaxed Heart Rate FHR Baseline Rate: 130 Monitor Mode: External US Variability: Moderate 6-25 bpm Accelerations: 15X15 Decelerations: None Category: Category I Pain Presence: None/Denies Datetime: 07/08/2018 05:00 Labor Evaluation Frequency: 0 Monitor Mode: External Duration (sec)2399: pt denies Resting Tone [place]: Relaxed Heart Rate FHR Baseline Rate: 130 Monitor Mode: External US Variability: Moderate 6-25 bpm Accelerations: 15X15 Decelerations: None Category: Category I Pain Presence: None/Denies Datetime: 07/08/2018 04:07 Maternal Assessment Level of Consciousness: Fully Conscious Headache: Denies Blurred Vision: No Respiratory Effort: Unlabored; Regular Rhythm; Equal Expansion Temperature Route: Oral Pain Presence: None/Denies Datetime: 07/08/2018 04:00 Labor Evaluation Frequency: 0 Monitor Mode: External Resting Tone [place]: Relaxed Heart Rate FHR Baseline Rate: 130 Pain Presence: None/Denies Datetime: 07/08/2018 03:00 Labor Evaluation Frequency: 0 Monitor Mode: External Duration (sec)2399: denies Resting Tone [place]: Relaxed Heart Rate FHR Baseline Rate: 140 Monitor Mode: External US Variability: Moderate 6-25 bpm Accelerations: 15X15 Decelerations: None Category: Category I Pain Presence: None/Denies Datetime: 07/08/2018 02:00 Labor Evaluation Frequency: 0 Monitor Mode: External Duration (sec)2399: denies Resting Tone [place]: Relaxed Heart Rate FHR Baseline Rate: 135 Monitor Mode: External US Variability: Moderate 6-25 bpm Accelerations: 15X15 Decelerations: None Category: Category I Pain Presence: None/Denies Datetime: 07/08/2018 01:00 Labor Evaluation Frequency: 0 Monitor Mode: External Duration (sec)2399: denies Resting Tone [place]: Relaxed Heart Rate FHR Baseline Rate: 135 Monitor Mode: External US Variability: Moderate 6-25 bpm Accelerations: 15X15 Decelerations: None Category: Category I Comments: loss of contact due to maternal movements. Pain Presence: None/Denies Datetime: 07/08/2018 00:00 Labor Evaluation Frequency: 0 Monitor Mode: External Duration (sec)2399: denies Resting Tone [place]: Relaxed Heart Rate FHR Baseline Rate: 135 Monitor Mode: External US Variability: Moderate 6-25 bpm Accelerations: 15X15 Decelerations: None Category: Category I Pain Presence: None/Denies Datetime: 07/07/2018 23:00 Labor Evaluation Frequency: 0 Monitor Mode: External Duration (sec)2399: pt denies Resting Tone [place]: Relaxed Heart Rate FHR Baseline Rate: 140 Monitor Mode: External US Variability: Moderate 6-25 bpm Accelerations: 15X15 Decelerations: None Category: Category I Comments: loss of contact at times pt was having a snack. Datetime: 07/07/2018 22:00 Labor Evaluation Frequency: 0 Monitor Mode: External Duration (sec)2399: pt denies Resting Tone [place]: Relaxed Heart Rate FHR Baseline Rate: 135 Monitor Mode: External US Variability: Moderate 6-25 bpm Accelerations: 15X15 Decelerations: None Category: Category I Pain Presence: None/Denies Datetime: 07/07/2018 21:00 Labor Evaluation Frequency: 0 Monitor Mode: External Resting Tone [place]: Relaxed Heart Rate FHR Baseline Rate: 145 Monitor Mode: External US Variability: Moderate 6-25 bpm Accelerations: 15X15 Decelerations: None Category: Category I Pain Presence: None/Denies Datetime: 07/07/2018 20:27 Bedside Blood Glucose: 112 Datetime: 07/07/2018 20:00 Labor Evaluation Frequency: 0 Monitor Mode: External Resting Tone [place]: Relaxed Heart Rate FHR Baseline Rate: 135 Monitor Mode: External US Variability: Moderate 6-25 bpm Accelerations: 15X15 Decelerations: None Category: Category I Pain Presence: None/Denies Datetime: 07/07/2018 19:49 Stage of : Antepartum Assessment Type: Ongoing Assessment Maternal Assessment Level of Consciousness: Fully Conscious DTR's/Clonus: DTRs 2+; No Clonus Headache: Denies Blurred Vision: No Respiratory Effort: Unlabored; Regular Rhythm; Equal Expansion Breath Sounds, Left: Clear and Equal Breath Sounds, Right: Clear and Equal Nausea/Vomiting: Denies RUQ Epigastric Pain: Denies Lower Extremities Edema: None Degree: None Upper Extremities Edema: None Degree: None Facial Edema: None Temperature Route: Oral Fall Risk Assessment History of Falling: (0) No Secondary Diagnosis: (0) No Ambulatory Aid: (0) Bedrest/Nurse Assist IV Therapy: (0) No Gait: (0) Normal/Bedrest/Immobile Mental Status: (0) Oriented to Own Ability Fall Score: 0 Fall Risk Score Definition: No Risk: No action required Pain Presence: None/Denies Datetime: 07/07/2018 19:00 Comments: assumed care of pt. Datetime: 07/07/2018 18:56 Maternal Assessment Level of Consciousness: Fully Conscious Headache: Denies Blurred Vision: No Nausea/Vomiting: Denies RUQ Epigastric Pain: Denies Monitor Mode: External Resting Tone [place]: Relaxed Monitor Mode: External US Pain Presence: None/Denies Datetime: 07/07/2018 16:32 Labor Evaluation Frequency: 0 Monitor Mode: External Resting Tone [place]: Relaxed Heart Rate FHR Baseline Rate: 125 Monitor Mode: External US FHR Baseline Changes: No Baseline Change Variability: Moderate 6-25 bpm Accelerations: 15X15 Decelerations: None Category: Category I Datetime: 07/07/2018 15:56 Labor Evaluation Frequency: 0 Monitor Mode: External Resting Tone [place]: Relaxed Heart Rate FHR Baseline Rate: 120 Monitor Mode: External US FHR Baseline Changes: No Baseline Change Variability: Moderate 6-25 bpm Accelerations: 15X15 Decelerations: None Category: Category I Datetime: 07/07/2018 13:55 Stage of : OB Triage Maternal Assessment Level of Consciousness: Fully Conscious Labor Evaluation Frequency: 1uc Monitor Mode: External Duration (sec)2399: 140 Quality: Mild Resting Tone [place]: Relaxed Heart Rate FHR Baseline Rate: 135 Monitor Mode: External US Variability: Moderate 6-25 bpm Accelerations: 15X15 Decelerations: None Category: Category I Pain Assessment Pain Scale: 0 Pain Goal: 3 Vaginal Exam Membrane Status: Intact Vaginal Bleeding: None Datetime: 07/07/2018 13:24 Fall Score: 0 Fall Risk Score Definition: No Risk: No action required Datetime: 07/07/2018 13:23 EGA: 36.6 Datetime: 07/06/2018 19:28 Fall Score: 0 Fall Risk Score Definition: No Risk: No action required Datetime: 07/06/2018 18:46 Fall Score: 0 Fall Risk Score Definition: No Risk: No action required Datetime: 07/06/2018 18:23 EGA: 36.5 Datetime: 05/05/2018 11:31 EGA: 36.5 Datetime: 05/05/2018 07:57 Fall Score: 20 Fall Risk Score Definition: No Risk: No action required Datetime: 05/05/2018 03:00 Fall Score: 20 Fall Risk Score Definition: No Risk: No action required Datetime: 05/04/2018 19:51 Fall Score: 0 Fall Risk Score Definition: No Risk: No action required Datetime: 05/04/2018 19:34 EGA: 27.5
--- NOTE | 2018-07-12 17:38 | PN ---
Triage Information Date/Time Reason for visit: Patient is here for NST and BPP Weeks of Gestation Patient is a 32-year-old 1 para 0 at 37 weeks and 4 day gestation with estimated date of delivery July 29, 2018 She is here for follow-up on oligohydramnios for NST and BPP Patient is gestational diabetic on metformin and insulin She reports positive movement, denies uterine contractions, denies vaginal bleeding or leaking fluid /Para 1 para 0 Diabetes: gestational Diabetes management: insulin controlled, oral agent Hypertention: none Objective Vital Signs Date Temp Pulse Resp B/P (MAP) Pulse Ox O2 O2 Flow FiO2 Time Delivery Rate 07/12/18 98.4 60 19 134/63 Room Air 16:28 (86) Heart Rate: 140's Heart Rate Comments heart rate tracing category 1 Contractions: None Results/Medications Imaging Results PROCEDURE: US OB biophysical profile CLINICAL INDICATION: Reduced movement TECHNIQUE: Multiple sonographic images of the pelvis were obtained. The images were reviewed on a PACS workstation. COMPARISON: 07/09/2018 FINDINGS: There is a single viable intrauterine gestation. The placenta is anterior. There is no evidence for an abruption or placenta previa. There is a vertex presentation. Biophysical profile: Body movement: 2/2 tone: 2/2 Breathin/2 SINCERE: 2/2 Total: 8/8 There is a normal amount of amniotic fluid with an SINCERE = 7.9 cm. heart activity with 152 bpm There are no adnexal masses. IMPRESSION: Normal biophysical profile. RPTAT: [facility] Physician Yvonne Date Time Electronically viewed and signed by Gloria Yost Physician on 07/12/2018 13:54 ME/ CC: GAVI BECKER [phone] Disposition: Discharge Assessment/Plan kick count instructions were given Labor precautions were given Patient instructed to return in 48 hours for repeat NST and BPP Patient instructed to follow-up with [facility] clinic in 1 to 2 days VERONICA AMEZQUITA MD Jul 12, 2018 17:38
== END 2018-07-12 17:40 | disposition home or self-care (01) ==
LOC: OBT 16:07 → L-D 16:07 → OBT 17:40
PROVIDERS: ATTEND Obstetrics & Gynecology
DX: O41.03X0 Oligohydramnios, third trimester, not applicable or unspecified (principal); O36.8330 Maternal care for abnormalities of the fetal heart rate or rhythm, third trimester, not applicable or unspecified; O24.414 Gestational diabetes mellitus in pregnancy, insulin controlled; Z3A.37 37 weeks gestation of pregnancy
CPT/HCPCS: 76818; Z7500; G0463

== ENCOUNTER 2018-07-15 17:57 | Outpatient (CLI) | payer MEDICAID ==
[~2018-07-15] VITALS: Ht 157.5 cm; Wt 87.2 kg
[2018-07-15 18:59] VITALS: BP 124/74; PULSE 70; RESP 19; Ht 157.5 cm; Wt 87.2 kg
--- NOTE | 2018-07-16 00:35 | TRIAGE ---
OB Triage Datetime Report Generated by CPN: 07/16/2018 00:35 Datetime: 07/15/2018 21:35 Labor Evaluation Frequency: occas Monitor Mode: External Duration (sec)2399: 60-80 Quality: Mild Pattern: Normal: <= 5 Contractions in 10 Minutes Resting Tone [place]: Relaxed Heart Rate FHR Baseline Rate: 130 Monitor Mode: External US FHR Baseline Changes: No Baseline Change Variability: Moderate 6-25 bpm Accelerations: 15X15 Decelerations: None Category: Category I Datetime: 07/15/2018 19:43 Labor Evaluation Frequency: occas Monitor Mode: External Duration (sec)2399: 50-80 Quality: Mild Pattern: Normal: <= 5 Contractions in 10 Minutes Resting Tone [place]: Relaxed Heart Rate FHR Baseline Rate: 140 Monitor Mode: External US FHR Baseline Changes: No Baseline Change Variability: Moderate 6-25 bpm Accelerations: 15X15 Decelerations: None Category: Category I Datetime: 07/15/2018 19:04 Assessment Type: Triage Maternal Assessment Level of Consciousness: Fully Conscious DTR's/Clonus: DTRs 2+; No Clonus Headache: Denies Blurred Vision: No Respiratory Effort: Unlabored; Regular Rhythm; Equal Expansion Breath Sounds, Left: Clear and Equal Breath Sounds, Right: Clear and Equal Nausea/Vomiting: Denies RUQ Epigastric Pain: Denies Lower Extremities Edema: None Degree: None Upper Extremities Edema: None Degree: None Facial Edema: None Fall Risk Assessment History of Falling: (0) No Secondary Diagnosis: (0) No Ambulatory Aid: (0) Bedrest/Nurse Assist IV Therapy: (0) No Gait: (0) Normal/Bedrest/Immobile Mental Status: (0) Oriented to Own Ability Fall Score: 0 Fall Risk Score Definition: No Risk: No action required Datetime: 07/15/2018 19:03 Time of Arrival: 07/15/2018 17:48 EGA: 38.0 Arrived By: Ambulatory Arrived From: Dr. Moon Chief Complaint: PIH Movement: Present Contractions: Denies/Absent Rupture of Membranes: Denies Vaginal Bleeding: None Vaginal Discharge: Denies Recent Sexual Intercouse: Denies Abdominal Trauma: Not Applicable Patient Complaints: Other Time Provider Notified: 07/15/2018 22:00 Provider Notified: Dr. Gandhi Initial Plan: NST BPP PIH LABS AND EFW Datetime: 07/12/2018 16:32 Fall Score: 0 Fall Risk Score Definition: No Risk: No action required Datetime: 07/12/2018 16:31 EGA: 37.4 Datetime: 07/09/2018 17:29 Fall Score: 0 Fall Risk Score Definition: No Risk: No action required Datetime: 07/09/2018 17:28 EGA: 36.1 Datetime: 07/08/2018 14:33 EGA: 36.1 Datetime: 07/08/2018 08:02 Fall Score: 20 Fall Risk Score Definition: No Risk: No action required Datetime: 07/07/2018 19:49 Fall Score: 0 Fall Risk Score Definition: No Risk: No action required Datetime: 07/07/2018 13:24 Fall Score: 0 Fall Risk Score Definition: No Risk: No action required Datetime: 07/07/2018 13:23 EGA: 36.6 Datetime: 07/06/2018 19:28 Fall Score: 0 Fall Risk Score Definition: No Risk: No action required Datetime: 07/06/2018 18:46 Fall Score: 0 Fall Risk Score Definition: No Risk: No action required Datetime: 07/06/2018 18:23 EGA: 36.5 Datetime: 05/05/2018 11:31 EGA: 36.5 Datetime: 05/05/2018 07:57 Fall Score: 20 Fall Risk Score Definition: No Risk: No action required Datetime: 05/05/2018 03:00 Fall Score: 20 Fall Risk Score Definition: No Risk: No action required Datetime: 05/04/2018 19:51 Fall Score: 0 Fall Risk Score Definition: No Risk: No action required Datetime: 05/04/2018 19:34 EGA: 27.5
--- NOTE | 2018-07-16 00:48 | PN ---
Triage Information Date/Time 07/16/1808/27/42 Reason for visit: R/O PIH Weeks of Gestation 38w /Para Diabetes: gestational Diabetes management: insulin controlled, oral agent Hypertention: induced Objective Vital Signs Date Temp Pulse Resp B/P (MAP) Pulse Ox O2 O2 Flow FiO2 Time Delivery Rate 07/15/18 98.4 70 19 124/74 Room Air 18:59 (91) Heart Rate: 140's Heart Rate Comments CAT I tracing Contractions: None Results/Medications Result Diagram: 07/15/18192807/15/181928 Results 24 hrs Laboratory Tests Test 07/15/18 19:00 07/15/18 19:29 Urine Color YELLOW Urine Clarity CLEAR Urine pH 6.0 Urine Specific [place] 1.009 Urine Ketones NEGATIVE Urine Nitrite NEGATIVE Urine Bilirubin NEGATIVE Urine Urobilinogen NEGATIVE Urine Leukocyte Esterase TRACE A Urine Microscopic RBC 1 Urine Microscopic WBC 1 Urine Squamous Epithelial Cells FEW Urine Bacteria FEW A Urine Hemoglobin NEGATIVE Urine Glucose NEGATIVE Urine Total Protein NEGATIVE White Blood Count 16.1 H Red Blood Count 4.53 Hemoglobin 12.6 Hematocrit 37.4 Mean Corpuscular Volume 82.6 Mean Corpuscular Hemoglobin 27.8 L Mean Corpuscular Hemoglobin Concent 33.7 Red Cell Distribution Width 17.2 H Platelet Count 184 Mean Platelet Volume 11.7 H Immature Granulocytes % 1.600 H Neutrophils % 73.7 Lymphocytes % 16.5 Monocytes % 7.2 Eosinophils % 0.8 Basophils % 0.2 Nucleated Red Blood Cells % 0.0 Immature Granulocytes # 0.250 H Neutrophils # 11.9 H Lymphocytes # 2.7 Monocytes # 1.2 H Eosinophils # 0.1 Basophils # 0.0 Nucleated Red Blood Cells # 0.0 Prothrombin Time 12.9 Prothrombin Time Ratio 1.0 INR International Normalized Ratio 0.96 Activated Partial Thromboplast Time 29.0 Fibrinogen 569.0 H Sodium Level 136 Potassium Level 3.8 Chloride Level 108 Carbon Dioxide Level 19 L Anion Gap 9 Blood Urea Nitrogen 13 Creatinine 0.52 Est Glomerular Filtrat Rate mL/min > 60 Glucose Level 113 Uric Acid 6.4 Calcium Level 9.1 Total Bilirubin 0.3 Direct Bilirubin 0.00 Indirect Bilirubin 0.3 Aspartate Amino Transf (AST/SGOT) 15 Alanine Aminotransferase (ALT/SGPT) 18 Alkaline Phosphatase 126 H Total Protein 7.1 Albumin 3.6 Globulin 3.50 H Albumin/Globulin Ratio 1.02 Imaging Results BPP 8/8 EFW 3041gm SINCERE 12.4 Disposition: Discharge Assessment/Plan A IUP 38w A2DM R/O PIH P discharge home RTH in 3days (thursday) for biwkly antepartum test REJI ASHER MD Jul 16, 2018 00:48
== END 2018-07-15 22:30 | disposition home or self-care (01) ==
LOC: OBT 17:57 → L-D 17:58 → OBT 22:30
PROVIDERS: ATTEND Obstetrics & Gynecology
DX: O24.414 Gestational diabetes mellitus in pregnancy, insulin controlled (principal); O13.3 Gestational [pregnancy-induced] hypertension without significant proteinuria, third trimester; Z3A.38 38 weeks gestation of pregnancy
CPT/HCPCS: 76815; 76818; 80053; 81001; 84560; 85025; 85384; 85610; 85730; Z7500; G0463

== ENCOUNTER 2018-07-18 15:39 | Inpatient (IN) | payer MEDICAID ==
[~2018-07-18] VITALS: Ht 157.5 cm; Wt 87.2 kg
[2018-07-18 15:44] VITALS: Ht 157.5 cm; Wt 87.2 kg
[2018-07-18] MEDS ORDERED: LACTATED RINGER'S 1,000 ML IV SCH (18:19)
--- NOTE | 2018-07-18 18:29 | HP ---
Date/Time of Note Date/Time of Note DATE: 07/18/18 TIME: 18:28 OB - History Hx of Present Free Text/Dictation @38+wks Gestation HTN and Low SINCERE : 1 Para: 0 Care: Good Care Ultrasounds: Normal mid trimester US Obstetrical Complications: None, Gestational Hypertension Medical Complications: None Past Family/Social History * Past Medical, Surgical, Family and Obstetric Histories reviewed from chart. OB Admission Exam Physical Exam Abdomen: WNL Extremities: Normal Membranes: Intact Heart Rate: 140's Accelerations: Accelerations Present Decelerations: No Decelerations Varibility: Moderate Contractions on Admission: None Last 72 hours Lab Results CBC & BMP 07/18/18 16:11 OB Assessment/Plan Reason for admission: observation Other Assessment: PMH Denies PSH Denies Allergy NKDA Plan: Expectant Management Other plan: 24 hr urine for pr PIH panel observation NILAM LONDONO M.D. Jul 18, 2018 18:29
[2018-07-18] MEDS ORDERED: OXYTOCIN 30 UNITS/LR 500 ML IV PRN (18:30)
[2018-07-18] MEDS ORDERED: CARBOPROST 250 MCG INJ IM PRN (18:30)
[2018-07-18] MEDS ORDERED: LIDOCAINE 1% (MPF) 30 ML INJ INJ PRN (18:30)
[2018-07-18] MEDS ORDERED: MISOPROSTOL 50 MCG CAPSULE VAG ONE (18:30)
[2018-07-18] MEDS ORDERED: AMPICILLIN 2 GM/NS (PMX) 100 ML IV ONE (18:30)
[2018-07-18] MEDS ORDERED: METHYLERGONOVINE 0.2 MG INJ IM PRN (18:30)
[2018-07-18] MEDS ORDERED: MISOPROSTOL 200 MCG TAB PR PRN (18:30)
[2018-07-18] MEDS ORDERED: OXYTOCIN 30 UNITS/LR 500 ML IV SCH ×3 (18:30)
[2018-07-18] MEDS ORDERED: BUTORPHANOL 2 MG INJ IV PRN (18:30)
[2018-07-18] MEDS ORDERED: MISOPROSTOL 200 MCG TAB PO SCH (21:00)
[2018-07-18] MEDS ORDERED: GLUCOSE GEL 15 GRAM TUBE BUCCAL PRN (21:30)
[2018-07-18] MEDS ORDERED: DEXTROSE 50% 50 ML SYRINGE IV PRN ×2 (21:30)
[2018-07-18] MEDS ORDERED: GLUCOSE GEL 15 GRAM TUBE PO PRN ×2 (21:30)
[2018-07-18] MEDS ORDERED: GLUCAGON 1 MG INJ IM PRN (21:30)
[2018-07-18] MEDS: DEXTROSE 5%-LR 1,000 ML IV SCH (21:39)
[2018-07-18] MEDS: AMPICILLIN 1 GM/NS (PMX) 50 ML IV SCH (22:48)
[2018-07-18] MEDS: INSULIN ASPART [NOVOLOG] 3 ML PEN SC SCH (23:29)
[2018-07-18] MEDS: LACTATED RINGER'S 1,000 ML IV SCH (23:52)
[2018-07-19] MEDS ORDERED: MISOPROSTOL 200 MCG TAB PR PRN
[2018-07-19] MEDS: MISOPROSTOL 50 MCG CAPSULE PO PRN ×5 (00:05→16:11)
[2018-07-19] MEDS: INSULIN ASPART [NOVOLOG] 3 ML PEN SC SCH ×5 (01:00→21:00)
[2018-07-19] MEDS: AMPICILLIN 1 GM/NS (PMX) 50 ML IV SCH ×3 (02:51→10:30)
[2018-07-19] MEDS: LACTATED RINGER'S 1,000 ML IV SCH ×3 (04:53→20:06)
[2018-07-19] MEDS: DEXTROSE 5%-LR 1,000 ML IV SCH ×2 (05:55→23:04)
[2018-07-19] MEDS ORDERED: FENTAnyl 2MCG/ML-ROPIV 0.2% 100 ML ONE (14:29)
--- NOTE | 2018-07-19 15:54 | PREAC ---
Date/Time of Note Date/Time of Note DATE: 07/19/18 TIME: 15:52 Anesthesia Eval and Record Evaluation Time Pre-Procedure Interview DATE: 07/19/18 TIME: 15:52 Age 32 Sex female NPO: 8 hrs Preoperative diagnosis IUP Planned procedure L&D Epidural Past Medical History Past Medical History: Includes Endo: Diabetes Surgery & Anesthesia Issues No known issue Meds Anticoagulation: No Beta Ramez within 24 hr: No Reason Beta Ramez not given: Pt. not on B-Ramez Reported Medications NPH, Human Insulin Isophane (Humulin N Kwikpen) 100 Unit/1 Ml Insuln.pen, 6 UNIT SQ QHS, EA 07/07/18 Metformin Hcl* (Metformin Hcl*) 500 Mg Tablet, 500 MG PO QHS, #30 TAB 05/04/18 Ferrous Sulfate* (Ferrous Sulfate*) 325 Mg Tabec, 325 MG PO DAILY, TAB 05/04/18 Pnv95/Ferrous Fumarate/FA ( Vitamin Tablet) 1 Each Tablet, 1 EACH PO, TAB 05/04/18 Current Medications Ampicillin 50 ml @ 100 mls/hr Q4H IV Last administered on 07/19/18at 10:30; Admin Dose 100 MLS/HR; Start 07/18/18 at 22:30 Butorphanol Tartrate (Stadol) 2 mg Q2H PRN IV .PAIN SCALE 6-10; Start 07/18/18 at 18:30 Lidocaine (Xylocaine 1% (Mpf)) 30 ml ONCE PRN INJ .EPISIOTOMY; Start 07/18/18 at 18:30 Oxytocin/Lactated Ringer's 500 ml @ 500 mls/hr ONCE POST IV ; Start 07/18/18 at 18:30 Oxytocin/Lactated Ringer's 500 ml @ 125 mls/hr POST IV ; Start 07/18/18 at 18:30 Oxytocin/Lactated Ringer's 500 ml @ 0 mls/hr ONCE PRN IV .VAGINAL BLEEDING; Start 07/18/18 at 18:30 Methylergonovine Maleate (Methergine) 0.2 mg ONCE PRN IM .VAGINAL BLEEDING; Start 07/18/18 at 18:30 Carboprost Tromethamine (Hemabate) 250 mcg ONCE PRN IM .VAGINAL BLEEDING; Start 07/18/18 at 18:30 Oxytocin/Lactated Ringer's 500 ml @ 0 mls/hr FOR INDUCTION IV ; Start 07/18/18 at 18:30 Insulin Aspart (Novolog Insulin Pen) NOVOLOG *MODERATE* ALGORI... Q4 SC ; Start 07/18/18 at 22:00 Lactated Ringer's 1,000 ml @ 125 mls/hr Q8H IV Last administered on 07/19/18at 14:32; Admin Dose 125 MLS/HR; Start 07/18/18 at 20:53 Dextrose/Lactated Ringer's 1,000 ml @ 125 mls/hr Q8H IV Last administered on 07/19/18at 05:55; Admin Dose 125 MLS/HR; Start 07/18/18 at 20:53 Miscellaneous Information 1 ea NOTE XX ; Start 07/18/18 at 21:30 Glucose (Glutose) 15 gm Q15M PRN PO DECREASED GLUCOSE; Start 07/18/18 at 21:30 Glucose (Glutose) 22.5 gm Q15M PRN PO DECREASED GLUCOSE; Start 07/18/18 at 21:30 Dextrose (D50w Syringe) 25 ml Q15M PRN IV DECREASED GLUCOSE; Start 07/18/18 at 21:30 Dextrose (D50w Syringe) 50 ml Q15M PRN IV DECREASED GLUCOSE; Start 07/18/18 at 21:30 Glucagon (Glucagen) 1 mg Q15M PRN IM DECREASED GLUCOSE; Start 07/18/18 at 21:30 Glucose (Glutose) 15 gm Q15M PRN BUCCAL DECREASED GLUCOSE; Start 07/18/18 at 21:30 Misoprostol (Cytotec 50 Mcg Capsule) 50 mcg Q4 PRN PO induction Last administered on 07/19/18at 12:07; Admin Dose 50 MCG; Start 07/19/18 at 00:00 Misoprostol (Cytotec) 1,000 mcg ONCE PRN AL .VAGINAL BLEEDING; Start 07/19/18 at 00:00 Meds reviewed: Yes Allergies Coded Allergies: No Known Allergy (Unverified , 07/18/18) Allergies Reviewed: Yes Labs/Studies Labs Reviewed: Reviewed by anesthesiologist Result Diagram: 07/18/18 1830 07/18/18 1830 Laboratory Tests 07/18/18 18:30 Blood Bank Test 07/18/18 18:30 Antibody Screen NEGATIVE Blood Type O POSITIVE Rh Immune Globulin Candidate NO test: Positive Studies: ECG Pre-procedure Exam Last vitals BP:124/67, P:78, Spo2:100%, T:98,8 Airway: Adequate mouth opening, Adequate thyromental dist Mallampati: Mallampati II Teeth: Normal Lung: Normal Heart: Normal ASA Physical Status ASA physical status: 2 Emergency: None Planned Anesthetic Neuraxial: Epidural Planned Pain Management Epidural Pre-operative Attestations Prior to commencing anesthesia and surgery, the patient was re-evaluated, there was verification of: *The patient's identity *The results of appropriate recent lab work and preoperative vital signs *The above evaluation not changing prior to induction *Anesthetic plan, risk benefits, alternative and complications discussed with patient/family; questions answered; patient/family understands, accepts and wishes to proceed. MARY CARMEN WOODRUFF MD Jul 19, 2018 15:54
[2018-07-19] MEDS ORDERED: OXYTOCIN 30 UNITS/LR 500 ML IV SCH (20:00)
[2018-07-19] MEDS ORDERED: ONDANSETRON 4 MG INJ IV PRN (20:30)
[2018-07-19] MEDS ORDERED: NALOXONE (0.4 MG/ML) INJ IV PRN (20:30)
[2018-07-19] MEDS ORDERED: DIPHENHYDRAMINE 50 MG INJ IV PRN (20:30)
[2018-07-19] MEDS: FENTAnyl 2MCG/ML-ROPIV 0.2% 100 ML BAG EPI SCH (20:34)
[2018-07-20] MEDS: FENTAnyl 2MCG/ML-ROPIV 0.2% 100 ML BAG EPI SCH ×2 (01:38→07:07)
[2018-07-20] MEDS: LACTATED RINGER'S 1,000 ML IV SCH (05:52)
--- NOTE | 2018-07-20 10:08 | LDN ---
Date/Time of Note Date/Time of Note DATE: 07/20/18 TIME: 10:07 Delivery Summary Weeks of Gestation 38+ Placenta Delivered: Spontaneously Meconium: none Episiotomy: No Laceration repair: Yes Anesthesia type: Epidural Estimated blood loss: 200 Sponge & Needle done & correct: Yes All needle counts correct: Yes Any foreign bodies felt in the: No Delivery Information Apgars 1 Minute: 9 5 Minute: 9 Suctioning Nose & mouth suctioned at shazia: Yes Delee suction performed: Yes Umbilical Cord Umbilical cord with: 3 Vessels Cord presentations: no nuchal cord Cord Blood was obtained: No Mother & Baby Disposition Disposition Mom & Baby to Maternity; Good: Yes Baby to NICU: No NILAM LONDONO M.D. Jul 20, 2018 10:08
[2018-07-20 11:45] VITALS: BP 129/70; PULSE 66; RESP 18
[2018-07-20] MEDS ORDERED: OXYTOCIN 30 UNITS/LR 500 ML IV SCH (11:53)
[2018-07-20] MEDS ORDERED: CARBOPROST 250 MCG INJ IM PRN (12:00)
[2018-07-20] MEDS ORDERED: ZOLPIDEM 5 MG TAB PO PRN (12:00)
[2018-07-20] MEDS ORDERED: SENNA/DOCUSATE NA (8.6MG/50MG) TAB PO PRN (12:00)
[2018-07-20] MEDS ORDERED: OXYTOCIN 30 UNITS/LR 500 ML IV PRN (12:00)
[2018-07-20] MEDS ORDERED: NACL 0.9% 3 ML SYG IV SCH (12:00)
[2018-07-20] MEDS ORDERED: METHYLERGONOVINE 0.2 MG INJ IM PRN (12:00)
[2018-07-20] MEDS ORDERED: LANOLIN HPA 1 PKT TOP PRN (12:00)
[2018-07-20] MEDS ORDERED: MISOPROSTOL 200 MCG TAB PR PRN (12:00)
[2018-07-20] MEDS ORDERED: OXYCODONE/ASPIRIN (4.88/325) TAB PO PRN (12:00)
[2018-07-20] MEDS: IBUPROFEN 600 MG TAB PO SCH ×3 (12:28→23:32)
[2018-07-20] MEDS ORDERED: ACCU-CHEK XX SCH (13:30)
[2018-07-20 16:00] VITALS: BP 121/59; PULSE 68; RESP 16
[2018-07-20 20:20] VITALS: BP 116/1; PULSE 57; RESP 17
[2018-07-20] MEDS: SENNA/DOCUSATE NA (8.6MG/50MG) TAB PO SCH (21:43)
[2018-07-21 00:20] VITALS: BP 112/56; PULSE 60; RESP 17
[2018-07-21 03:48] VITALS: BP 108/74; PULSE 64; RESP 17
[2018-07-21] MEDS: IBUPROFEN 600 MG TAB PO SCH ×3 (05:37→18:00)
[2018-07-21 08:00] VITALS: BP_SYST 115; BP_SYST 116; BP_DIAS 56; PULSE 61; RESP 18
[2018-07-21] MEDS: SENNA/DOCUSATE NA (8.6MG/50MG) TAB PO SCH ×2 (09:00→21:10)
--- NOTE | 2018-07-21 09:58 | PAC ---
Date/Time of Note Date/Time of Note DATE: 07/21/18 TIME: 09:57 Post-Anesthesia Notes Post-Anesthesia Note Last documented vital signs Vital Signs Date Temp Pulse Resp B/P (MAP) Pulse Ox O2 O2 Flow FiO2 Time Delivery Rate 07/21/18 98.6 61 18 115/56 08:00 (75) 07/21/18 Room Air 03:48 Activity: WNL Respiratory function: WNL Cardiovascular function: WNL Mental status: Baseline Pain reasonably controlled: Yes Hydration appropriate: Yes Nausea/Vomiting absent: Yes Comments BP:112/56, P:78, Spo2:100%, T:98,8 MARY CARMEN WOODRUFF MD Jul 21, 2018 09:58
--- NOTE | 2018-07-21 13:16 | PN ---
Date/Time of Note Date/Time of Note DATE: 07/21/18 TIME: 13:12 OB Subjective Subjective Subjective PPD# 1 Patient is doing well. She denies nausea, vomiting, shortness of breath, chest pain, headache. She has been ambulating without difficulty, tolerating regular diet. Pain is well controlled on current medications OB Objective Objective Objective VS - Last 72 Hours, by Label Date Temp Pulse Resp B/P (MAP) Pulse Ox O2 O2 Flow FiO2 Time Delivery Rate 07/21/18 98.6 61 18 116/56 Room Air 08:00 (76) 07/21/18 98.6 61 18 115/56 08:00 (75) 07/21/18 98.0 64 17 108/74 Room Air 03:48 (85) 07/21/18 97.8 60 17 112/56 Room Air 00:20 (74) 07/20/18 98.3 57 17 116/1 (39) Room Air 20:20 07/20/18 98.2 68 16 121/59 Room Air 16:00 (79) 07/20/18 98.0 66 18 129/70 Room Air 11:45 (89) General: AAO X 3, comfortable, NAD, appropriate mood and affect. ABD: +BS. Soft, non-tender. Uterus 2 cm below umbilicus Flank: No CVA tenderness (B/L) LE: Mild edema. No clubbing, cyanosis, thigh or calf tenderness (B/L). Homans 'sign is negative OB Assessment/Plan Other plan: 32-year-old 1 para 1-0-0-1 with gestational hypertension s/p normal vaginal delivery. PPD#1 - AF, VSS - Baby is doing well, at bed side. She is bonding well - Contraception methods with R/B/A/FR discussed - Continue care - Discharge home tomorrow - Rx and instruction given - Follow up in 2 and 6 weeks at clinic 2. Gestational hypertension: She is currently doing well, no sign or symptom of preeclampsia with severe features. On her blood pressure the last 2 days are within normal limits. GAVI BECKER Jul 21, 2018 13:16
--- NOTE | 2018-07-21 13:20 | DS ---
Date/Time of Note Date/Time of Note DATE: 07/21/18 TIME: 13:17 Obstetrical Discharge Record Final Diagnosis Final Diagnosis: Term delivered Other Final Diagnosis 32-year-old 1 para 1-0-0-1 with gestational hypertension s/p normal vaginal delivery. PPD#1. course was unremarkable. She is ambulating and tolerating regular diet. She is voiding without difficulty. Pain is controlled on current medication. - AF, VSS - Baby is doing well, at bed side. She is bonding well - Contraception methods with R/B/A/FR discussed - Continue care - Discharge home tomorrow - Rx and instruction given - Follow up in 2 and 6 weeks at clinic 2. Gestational hypertension: She is currently doing well, no sign or symptom of preeclampsia with severe features. All blood pressures in last 2 days are within normal limits. Vaginal Delivery Obstetrical Delivery: Spontaneous Condition on Discharge Physical Assessment Last Vitals: Vital Signs Date Temp Pulse Resp B/P (MAP) Pulse Ox O2 O2 Flow FiO2 Time Delivery Rate 07/21/18 98.6 61 18 116/56 Room Air 08:00 (76) Voiding: Yes Bowel Movement: Yes Breast: Soft, non-tender Fundus: Firm Calf Tenderness: No Patient Condition: Stable GAVI BECKER Jul 21, 2018 13:20
[2018-07-21 15:36] VITALS: BP 120/58; PULSE 65; RESP 18
[2018-07-21 20:00] VITALS: BP 130/58; PULSE 60; RESP 18
[2018-07-22] MEDS: IBUPROFEN 600 MG TAB PO SCH ×3 (00:19→12:00)
[2018-07-22 04:35] VITALS: BP 135/65; PULSE 60
[2018-07-22 08:00] VITALS: BP_SYST 122; BP_DIAS 62; BP_DIAS 78; PULSE 59; RESP 18
[2018-07-22] MEDS: SENNA/DOCUSATE NA (8.6MG/50MG) TAB PO SCH (09:00)
[2018-07-22] MEDS ORDERED: DIPHTH/TET/ACEL PERTUSS (ADULT) 0.5 ML VIAL IM* ONE (09:00)
--- NOTE | 2018-07-23 13:43 | DELSUM ---
Delivery Summary A-C Datetime Report Generated by CPN: 07/23/2018 13:43 DELIVERY PERSONNEL Member Service Specialist: Stanislaw, Yasmeen MATERNAL INFORMATION Delivery Anesthesia: Epidural Medications in Delivery: LR 500ML PITOCIN 30 UNITS Delivery QBL (ml): 200 Placenta Cultured: No Maternal Complications: Other Other Maternal Complications: GMD-METFORMIN, SLIDING SCALE INSULIN LABOR SUMMARY EDC: 07/29/2018 00:00 No. Babies in Womb: 1 Attempted: No Labor Anesthesia: Epidural LABOR INFORMATION Reason for Induction: Maternal Diabetes Onset of Labor: 07/19/2018 00:05 Complete Dilatation: 07/20/2018 10:37 Cervical Ripening Agents: Cytotec @ Oxytocin: Induction Group B Beta Strep: Negative Antibiotics # of Doses: 5 Antibiotics Time of Last Dose: 07/19/2018 10:30 Steroids Given: None Reason Steroids Not Administered: Not Applicable MEMBRANES Membranes Rupture Method: Spontaneous Rupture of Membranes: 07/20/2018 05:52 Length of Rupture (hr): 3.92 Amniotic Fluid Color: Clear Amniotic Fluid Amount: Small Amniotic Fluid Odor: None STAGES OF LABOR Stage 1 hr: 34 Stage 1 min: 32 Stage 2 hr: 0 Stage 2 min: -50 Stage 3 hr: 0 Stage 3 min: 1 Total Time in Labor hr: 33 Total Time in Labor min: 43 VAGINAL DELIVERY Episiotomy: None Laceration Extension: Second Degree Laceration Type: Perineal Laceration Repair: Yes Initial Vag Sponge Count: 10 Final Vag Sponge Count: 10 Initial Vag Sharps Count: 1+2 Final Vag Sharps Count: 3 Sponge Count Correct: Yes; Vaginal Sweep Performed Sharps Count Correct: Yes BABY A INFORMATION Infant Delivery Date/Time: 07/20/2018 09:47 Method of Delivery: Vaginal Born in Route : No : N/A Forceps: N/A Vacuum Extraction: N/A Shoulder Dystocia : N/A SHOULDER DYSTOCIA BABY A Delivery Date/Time: 07/20/2018 09:47 PRESENTATION/POSITION BABY A Presentation: Cephalic Cephalic Presentation: Vertex Breech Presentation: N/A PLACENTA INFORMATION BABY A Placenta Delivery Time : 07/20/2018 09:48 Placenta Method of Delivery: Spontaneous Placenta Status: Delivered SCORES BABY A Heart Rate 1 min: >100 bpm Resp Effort 1 min: Good Cry Reflex Irritability 1 min: Cough/Sneeze/Pulls Away Muscle Tone 1 min: Active Motion Color 1 min: Body [place], Extremit Blue Resuscitation Effort 1 min: Tactile Stimulation SCORE 1 MIN: 9 Heart Rate 5 min: >100 bpm Resp Effort 5 min: Good Cry Reflex Irritability 5 min: Cough/Sneeze/Pulls Away Muscle Tone 5 min: Active Motion Color 5 min: Body [place], Extremit Blue Resuscitation Effort 5 min: Tactile Stimulation SCORE 5 MIN: 9 INFORMATION BABY A Gestational Age at Delivery: 38.4 Gestational Status: Early Term- 37- 38.6 Weeks Outcome : Liveborn Infant Condition : Stable Sex: Female IDENTIFICATION/MEDS BABY A ID Band Number: [id number] ID Band Location: Right Leg; Left Arm Sensor Applied: Yes Sensor Number: [id number] Sensor Location : Cord Clamp Vitamin K Given : Not Given Erythromycin Given: Not Given WEIGHT/LENGTH BABY A Infant Birthweight (gm): 2995 Weight (lb): 6 Infant Weight (oz): 10 Infant Length (in): 20.00 Length (cm): 50.80 CORD INFORMATION BABY A No. Cord Vessels: 3 Nuchal Cord : N/A Cord Blood Taken: Yes Infant Suction: Mouth; Nose ASSESSMENT BABY A Complications: None Physical Findings at Delivery: Within Normal Limits Infant Respirations: Appears Normal Medical Case Manager/ALS Called : Yes Infant Care By: RT/RN Transferred To: Remains with Mother
== END 2018-07-22 12:30 | disposition home or self-care (01) | DRG 807 ==
LOC: OBT 15:39 → L-D 15:40 → OBT 17:56 → PP1 07-20 11:33
PROVIDERS: ADMIT Obstetrics & Gynecology; ATTEND Obstetrics & Gynecology
PROC: 10E0XZZ Delivery of Products of Conception, External Approach (ICD-10-PCS; principal; 2018-07-20)
DX: O13.4 Gestational [pregnancy-induced] hypertension without significant proteinuria, complicating childbirth (principal); Z37.0 Single live birth; Z3A.38 38 weeks gestation of pregnancy
CPT/HCPCS: 62322; 76815; 76818; 80053; 81001; 82962; 84112; 84560; 85025; 85610; 85730; 86592; 86850; 86900; 86901; 99464; G0463; J0290; J1815; J2405; J2590; J3010; J7120; J7121

== ENCOUNTER 2018-08-02 00:20 | Emergency (ER) | payer MEDICAID ==
[~2018-08-02] VITALS: Ht 160 cm; Wt 76.2 kg
[2018-08-02 00:25] VITALS: Ht 160 cm; Wt 76.2 kg
[2018-08-02] MEDS ORDERED: KETOROLAC 15 MG INJ IV STA (02:05)
[2018-08-02] MEDS ORDERED: ONDANSETRON 4 MG INJ IV STA (02:05)
[2018-08-02] MEDS ORDERED: METOCLOPRAMIDE 10 MG INJ IV STA (02:05)
[2018-08-02] MEDS ORDERED: SOD CHLORIDE 0.9% 1,000 ML IV STA (02:05)
--- NOTE | 2018-08-02 02:13 | ERD ---
ER Documentation Chief Complaint Chief Complaint Epigastric pain 11/18, SOB, weakness X 12 hrs, had vaginal 2 wks ago HPI Patient is a 32 years old female with PMHx of gestational Diabetes presenting to the clinic for sever (11/18) epigastric pain x 12 hours with 2 episode of NBNB emesis (12PM and 11:30PM respectively). Pyrosis, dizziness, and loss of appetite x 2 days. Patient admits to constipation x 2 days and recent vaginal deliver 2 weeks ago. Patient denies fever, chills, nights sweats, bloating, hematochezia, melena, chest pain. Patient reports of SOB during severe epigastric pain. Patient denies pain with eating. ROS All systems reviewed and are negative except as per history of present illness. Medications Home Meds Active Scripts Meloxicam* (Meloxicam*) 7.5 Mg Tablet, 7.5 MG PO DAILY, #30 TAB Prov:CAT BAILEY PA-C 08/02/18 Ciprofloxacin Hcl* (Ciprofloxacin Hcl*) 500 Mg Tablet, 500 MG PO BID for 10 Days, TAB Prov:CAT BAILEY PA-C 08/02/18 Allergies Allergies: Coded Allergies: No Known Allergy (Unverified , 07/18/18) PMhx/Soc Medical and Surgical Hx: pt denies Surgical Hx History of Surgery: No Anesthesia Reaction: No Hx Neurological Disorder: No Hx Respiratory Disorders: No Hx Cardiac Disorders: No Hx Psychiatric Problems: No Hx Miscellaneous Medical Probl: Yes (GESTATIONAL DM) Hx Alcohol Use: No Hx Substance Use: No Hx Tobacco Use: No Smoking Status: Never smoker Physical Exam Vitals Vital Signs Date Temp Pulse Resp B/P (MAP) Pulse Ox O2 O2 Flow FiO2 Time Delivery Rate 08/02/18 98.9 64 18 149/70 96 00:25 (96) Physical Exam Const: No acute distress. Head: Atraumatic Eyes: Normal Conjunctiva Resp: Clear to auscultation bilaterally Cardio: Regular rate and rhythm, no murmurs Abd: Soft, non distended. Normal bowel sounds. RUQ tenderness with positive French sign and mild guarding. Negative Rovsing sign, McBurney's point ten derness, Burak sign, [place] sign. No rebound tenderness. Back: No midline or flank tenderness. Negative CVAT. Ext: No cyanosis, or edema Neur: Awake and alert Psych: Normal Mood and Affect Result Diagram: 08/02/18 0218 08/02/18 0218 Results 24 hrs Laboratory Tests Test 08/02/18 02:04 08/02/18 02:18 08/02/18 02:23 Urine Color YELLOW Urine Clarity SLIGHTLY CLOUDY Urine pH 5.0 Urine Specific [place] 1.024 Urine Ketones NEGATIVE mg/dL Urine Nitrite NEGATIVE mg/dL Urine Bilirubin NEGATIVE mg/dL Urine Urobilinogen NEGATIVE mg/dL Urine Leukocyte Esterase 3+ Giselle/ul Urine Microscopic RBC 6 /HPF Urine Microscopic WBC 120 /HPF Urine Hemoglobin 2+ mg/dL Urine Glucose NEGATIVE mg/dL Urine Total Protein NEGATIVE mg/dl White Blood Count 16.9 10^3/ul Red Blood Count 5.24 10^6/ul Hemoglobin 14.6 g/dl Hematocrit 43.6 % Mean Corpuscular Volume 83.2 fl Mean Corpuscular Hemoglobin 27.9 pg Mean Corpuscular 33.5 g/dl Hemoglobin Concent Red Cell Distribution Width 15.2 % Platelet Count 331 10^3/UL Mean Platelet Volume 10.3 fl Immature Granulocytes % 0.500 % Neutrophils % 75.6 % Lymphocytes % 16.1 % Monocytes % 6.3 % Eosinophils % 1.2 % Basophils % 0.3 % Nucleated Red Blood Cells % 0.0 /100WBC Immature Granulocytes # 0.080 10^3/ul Neutrophils # 12.8 10^3/ul Lymphocytes # 2.7 10^3/ul Monocytes # 1.1 10^3/ul Eosinophils # 0.2 10^3/ul Basophils # 0.1 10^3/ul Nucleated Red Blood Cells # 0.0 10^3/ul Sodium Level 143 mmol/L Potassium Level 4.1 mmol/L Chloride Level 104 mmol/L Carbon Dioxide Level 26 mmol/L Anion Gap 13 Blood Urea Nitrogen 25 mg/dl Creatinine 0.63 mg/dl Est Glomerular Filtrat > 60 mL/min Rate mL/min Glucose Level 122 mg/dl Calcium Level 9.4 mg/dl Total Bilirubin 0.3 mg/dl Direct Bilirubin 0.00 mg/dl Indirect Bilirubin 0.3 mg/dl Aspartate Amino 102 IU/L Transf (AST/SGOT) Alanine 68 IU/L Aminotransferase (ALT/SGPT) Alkaline Phosphatase 122 IU/L Total Protein 8.3 g/dl Albumin 4.4 g/dl Globulin 3.90 g/dl Albumin/Globulin Ratio 1.12 Lipase 74 U/L POC Beta HCG, Qualitative NEGATIVE Current Medications Medications Dose Sig/Britt Start Time Status Last (Trade) Ordered Route PRN Stop Time Admin Dose Reason Admin Sodium 1,000 ml @ Q1H STAT 08/02/18 DC 08/02/18 Chloride 1,000 mls/hr IV 02:05 02:25 08/02/18 03:04 Ondansetron 4 mg ONCE STAT 08/02/18 DC 08/02/18 HCl (Zofran IV 02:05 02:24 Inj) 08/02/18 02:09 10 mg ONCE STAT 08/02/18 DC 08/02/18 Metoclopramid IV 02:05 02:27 e HCl 08/02/18 02:09 (Reglan) Ketorolac 15 mg ONCE STAT 08/02/18 DC 08/02/18 Tromethamine IV 02:05 02:27 (Toradol) 08/02/18 02:09 Procedures/MDM Patient was seen and evaluated for epigastric pain. CBC, CMP, Urinalysis, Lipase revealed leukocytosis, leukocyte esterase, and urine WBC which is most significant for UTI. LUQ ultrasound revealed Small gallstones are present with sludge but no additional sonographic evidence for acute cholecystitis. Hepatomegaly. Patient was given NS 1L IV with Zofran 4mg, Toradol 15mg, Reglan 10mg IV administered in hospital while NPO; repeat physical exam elicited no tenderness as patient reports pain resolved. Patient is stable and ready for discharge. F/U with GI specialist for outpatient management. F/U with PCP. Patient will be Discharged with Ciprofloxacin 500mg PO and Meloxicam. Departure Diagnosis: Primary Impression: Epigastric pain Additional Impression: UTI (urinary tract infection) Urinary tract infection type: site unspecified Hematuria presence: without hematuria Qualified Codes: N39.0 - Urinary tract infection, site not specified Condition: Stable Patient Instructions: Gallstones, Understanding Urinary Tract Infections (UTIs) Referrals: [facility] Additional Instructions: Paciente aconseja volver a Departamento de urgencias inmediatamente para sntomas nuevos o que empeoran . Paciente aconseja posteriores con el PCP en 2-3 allen . Paciente verbaliza la comprehensin y est de acuerdo con el tratamiento y el curso de accin. Si el paciente no tiene ninguna de atencin primaria pueden seguir con [facility] [address] [place] [address] o [facility] [address] [place] [id number] CAT BAILEY PA-C Aug 02, 2018 02:13
[2018-08-02] MEDS ORDERED: MELO7.5T38 PO (04:45)
[2018-08-02] MEDS ORDERED: CIPR500T4 PO (04:45)
[2018-08-02 05:03] VITALS: BP 139/78; PULSE 60; RESP 20
== END 2018-08-02 05:05 | disposition home or self-care (01) ==
LOC: FTE 00:20
DX: N39.0 Urinary tract infection, site not specified (principal)
CPT/HCPCS: 76705; 80053; 81001; 81025; 83690; 85025; J1885; J2405; J2765; J7030; 36415; 96374; 96375